=== PATIENT | male | born 1955 | race Caucasian/White ===

== ENCOUNTER 2020-10-07 09:47 | Emergency (ER) | payer OTHER ==
[2020-10-07] MEDS ORDERED: LIDOCAINE 1% MPF 5 ML VIAL ONE (11:38)
--- NOTE | 2020-10-07 12:05 | ER ---
Nurse's Notes [facility] Name: Marine Levi Age: 65 yrs Sex: Male : 1955 Arrival Date: 10/07/2020 Time: 09:48 Bed 16 Private MD: Diagnosis: Superficial laceration right 5th digit Presentation: 10/07 10:35 Chief complaint: Patient states: Lac on pinky of R hand by a skilsaw. Bleeding ca1 controlled. Coronavirus screen: Client denies travel out of the [place] in the last 14 days. At this time, the client does not indicate any symptoms associated with coronavirus-19. Ebola Screen: Patient negative for fever greater than or equal to 101.5 degrees Fahrenheit, and additional compatible Ebola Virus Disease symptoms Patient denies exposure to infectious person. Patient denies travel to an Ebola-affected area in the 21 days before illness onset. No symptoms or risks identified at this time. Initial Sepsis Screen: Does the patient meet any 2 criteria? No. Patient's initial sepsis screen is negative. Does the patient have a suspected source of infection? No. Patient's initial sepsis screen is negative. Risk Assessment: Do you want to hurt yourself or someone else? Patient reports no desire to harm self or others. Onset of symptoms was October 07, 2020. 10:35 Method Of Arrival: Ambulatory ca1 10:35 Acuity: ZAIN 4 ca1 Historical: - Allergies: 10:38 No Known Allergies; ca1 - Home Meds: 10:38 None [Active]; ca1 - PMHx: 10:38 None; ca1 - PSHx: 10:38 None; ca1 - Immunization history:: Adult Immunizations up to date, Last tetanus immunization: unknown. - Social history:: Smoking status: Patient denies any tobacco usage or history of. - Family history:: not pertinent. - Hospitalizations: : No recent hospitalization is reported. Screenin:30 Abuse screen: Denies threats or abuse. Denies injuries from another. Nutritional zb screening: No deficits noted. Tuberculosis screening: No symptoms or risk factors identified. Fall Risk None identified. Assessment: 11:30 General: Appears in no apparent distress. uncomfortable, Behavior is calm, cooperative, zb appropriate for age. General:. Pain: Complains of pain in right index finger Pain does not radiate. Pain currently is 5 out of 10 on a pain scale. Neuro: Level of Consciousness is awake, alert, obeys commands, Oriented to person, place, time, situation. Cardiovascular: Capillary refill < 3 seconds in bilateral fingers Patient's skin is warm and dry. Respiratory: Airway is patent Respiratory effort is even, unlabored, Respiratory pattern is regular, symmetrical. GI: No signs and/or symptoms were reported involving the gastrointestinal system. : No signs and/or symptoms were reported regarding the genitourinary system. EENT: No signs and/or symptoms were reported regarding the EENT system. Derm: Skin is healthy with good turgor. Musculoskeletal: Circulation, motion, and sensation intact. Capillary refill Range of motion: intact in all extremities. Injury Description: Laceration sustained to right index finger is full thickness, a small amount of bleeding noted at this time. 12:20 Reassessment: Patient appears in no apparent distress at this time. Patient is alert, zb oriented x 3, equal unlabored respirations, skin warm/dry/pink. d/c instructions given. PVU. Vital Signs: 10:35 BP 135 / 81; Pulse 56; Resp 17 S; Temp 98.4(TE); Pulse Ox 97% on R/A; Weight 81.65 kg ca1 (R); Height 5 ft. 5 in. (165.10 cm) (R); Pain 5/10; 12:20 BP 137 / 82; Pulse 58; Resp 16; Pulse Ox 99% on R/A; zb 10:35 Body Mass Index 29.95 (81.65 kg, 165.10 cm) ca1 ED Course: 09:48 Patient arrived in ED. ag5 10:37 Triage completed. ca1 10:38 Arm band placed on right wrist. ca1 10:39 Di Purdy, KAYLIE is Primary Nurse. zb 11:16 Wang Smith MD is Attending Physician. rn 11:30 Patient has correct armband on for positive identification. Bed in low position. Call zb light in reach. Side rails up X 1. Door closed. Noise minimized. 11:30 No provider procedures requiring assistance completed. Patient did not have IV access zb during this emergency room visit. Administered Medications: 11:43 Drug: Lidocaine (1 %) 1 vials Volume: 5 ml; Route: Infiltration; zb 12:07 Drug: Tetanus-Diphtheria Toxoid Adult 0.5 ml {Custodial Aide: [employer]. Exp: zb 02/01/2022. Lot #: [id number]. } Route: IM; Site: right deltoid; 12:25 Follow up: Response: No adverse reaction zb Outcome: 12:03 Discharge ordered by . rn 12:20 Discharged to home ambulatory. zb 12:20 Condition: good 12:20 Discharge instructions given to patient, family, Instructed on discharge instructions, follow up and referral plans. medication usage, Demonstrated understanding of instructions, follow-up care, medications, Prescriptions given X 1. 12:32 Patient left the ED. zb Signatures: Wang Smith MD MD rn Acob, Cheryl RN RN Erica Barrera [facility] Di Purdy RN RN zb
--- NOTE | 2020-10-07 12:05 | EDPHYS ---
[facility] Name: Marine Levi Age: 65 yrs Sex: Male : 1955 Arrival Date: 10/07/2020 Time: 09:48 Bed 16 Private MD: ED Physician Wang Smith HPI: 10/07 11:59 This 65 yrs old Male presents to ER via Ambulatory with complaints of Finger rn Injury, Laceration. 11:59 Trauma demographics: Location of Injury: The injury occurred at work. Mechanism of rn injury: skilsaw. Associated injuries: The patient sustained right 5th finger. Onset: The symptoms/episode began/occurred just prior to arrival. The patient has not experienced similar symptoms in the past. The patient has not recently seen a physician. Historical: - Allergies: 10:38 No Known Allergies; ca1 - Home Meds: 10:38 None [Active]; ca1 - PMHx: 10:38 None; ca1 - PSHx: 10:38 None; ca1 - Immunization history:: Adult Immunizations up to date, Last tetanus immunization: unknown. - Social history:: Smoking status: Patient denies any tobacco usage or history of. - Family history:: not pertinent. - Hospitalizations: : No recent hospitalization is reported. ROS: 11:59 Constitutional: Negative for fever, chills, and weight loss, MS/Extremity: + laceration rn to right 5th digit Exam: 11:59 Constitutional: This is a well developed, well nourished patient who is awake, alert, rn and in no acute distress. MS/ Extremity: Pulses equal, no cyanosis. 6 cm angular/superficial laceration to dorsum of right 5th digit, no active bleeding, no foreign body, FROM, no bony tenderness Vital Signs: 10:35 BP 135 / 81; Pulse 56; Resp 17 S; Temp 98.4(TE); Pulse Ox 97% on R/A; Weight 81.65 kg ca1 (R); Height 5 ft. 5 in. (165.10 cm) (R); Pain 5/10; 12:20 BP 137 / 82; Pulse 58; Resp 16; Pulse Ox 99% on R/A; zb 10:35 Body Mass Index 29.95 (81.65 kg, 165.10 cm) ca1 Laceration: 11:59 Wound Repair of 6cm ( 2.4in ) subcutaneous laceration to right hand, 5th digit. Distal rn neuro/vascular/tendon intact. Anesthesia: Regional Block with 4 mls of 1% lidocaine. Wound prep: Extensive cleansing by nurse, Wound irrigation by nurse, Wound explored extensively. Skin closed with 7 4-0 Prolene using interrupted sutures and sterile technique. Dressed with 4x4's. Patient tolerated well. MDM: 11:16 Patient medically screened. rn 11:59 Differential diagnosis: laceration 5th digit. Data reviewed: vital signs, nurses notes, rn and as a result, I will discharge patient. Counseling: I had a detailed discussion with the patient and/or guardian regarding: the historical points, exam findings, and any diagnostic results supporting the discharge/admit diagnosis, the need for outpatient follow up, to return to the emergency department if symptoms worsen or persist or if there are any questions or concerns that arise at home. Response to treatment: the patient's symptoms have markedly improved after treatment, and as a result, I will discharge patient. Special discussion: I discussed with the patient/guardian in detail that at this point there is no indication for admission to the hospital. It is understood, however, that if the symptoms persist or worsen the patient needs to return immediately for re-evaluation. 10/07 11: Order name: Wound Care; Complete Time: 43 rn 10/07 11: Order name: Prolene, Sutures; Complete Time: rn 10/07 11: Order name: Dressing - Wound; Complete Time: 43 rn 10/07 11: Order name: Gloves, Sterile; Complete Time: rn 10/07 11: Order name: Setup Suture Tray; Complete Time: :43 rn Administered Medications: : Drug: Lidocaine (1 %) 1 vials Volume: 5 ml; Route: Infiltration; zb 12:07 Drug: Tetanus-Diphtheria Toxoid Adult 0.5 ml {Butcher Hel[employer]: [employer]. Exp: zb 02/01/2022. Lot #: [id number]. } Route: IM; Site: right deltoid; 12:25 Follow up: Response: No adverse reaction zb Disposition: 10/07/20 12:03 Discharged to Home. Impression: Superficial laceration right 5th digit. - Condition is Stable. - Discharge Instructions: Laceration Care, Adult. - Prescriptions for Augmentin 875- 125 mg Oral Tablet - take 1 tablet by ORAL route every 12 hours for 10 days; 20 tablet. - Medication Reconciliation Form, Thank You Letter, Antibiotic Education, Prescription Opioid Use form. - Follow up: Private Physician; When: 14 days; Reason: Staple/Suture removal. - Problem is new. - Symptoms have improved. Signatures: Wang Smith MD MD rn Acob, KAYLIE Luna RN, [place], RN RN zb Corrections: (The following items were deleted from the chart) 12:32 12:03 10/07/2020 12:03 Discharged to Home. Impression: Superficial laceration right 5th zb digit. Condition is Stable. Forms are Medication Reconciliation Form, Thank You Letter, Antibiotic Education, Prescription Opioid Use. Follow up: Private Physician; When: 14 days; Reason: Staple/Suture removal. Problem is new. Symptoms have improved. rn
[2020-10-07] MEDS ORDERED: TETANUS & DIPHTHERIA TOX,ADULT 0.5 ML VIAL ONE (12:12)
[2020-10-08 21:24] VITALS: TEMP 98.4
[2020-10-08 21:25] VITALS: BP 137/82; O2SAT 99
== END 2020-10-07 12:32 | disposition home or self-care (01) ==
LOC: ER 09:47
PROC: 0JQJ0ZZ Repair Right Hand Subcutaneous Tissue and Fascia, Open Approach (ICD-10-PCS; principal; 2020-10-07)
DX: S61.216A Laceration without foreign body of right little finger without damage to nail, initial encounter (principal); W29.8XXA Contact with other powered hand tools and household machinery, initial encounter; Y93.9 Activity, unspecified; Y92.89 Other specified places as the place of occurrence of the external cause; Y99.8 Other external cause status; Z23 Encounter for immunization
CPT/HCPCS: 90471; 90714; 99283